=== PATIENT | male | born 1960 | race Caucasian/White ===

== ENCOUNTER 2017-01-16 00:43 | Emergency (ER) | payer OTHER ==
[~2017-01-16] VITALS: Ht 182.9 cm; Wt 87.3 kg
[~2017-01-16 00:43] MED LIST: ATOR10TA9 PO; CLON-365 PO; METF10002 PO; OMEP-110 PO; TAMS0.4C2 PO
[2017-01-16 00:46] VITALS: BP 146/82
[2017-01-16] MEDS ORDERED: KETOROLAC 30 MG/1 ML IM ONE (01:00)
[2017-01-16] MEDS ORDERED: DIAZEPAM 5 MG TABLET PO ONE (01:00)
[2017-01-16] MEDS ORDERED: KETOROLAC 30 MG/1 ML ONE (01:02)
[2017-01-16] MEDS ORDERED: DIAZEPAM 5 MG TABLET ONE (01:02)
[2017-01-16] MEDS ORDERED: HYDROcodone/APAP 5/325 TABLET ONE (01:58)
[2017-01-16] MEDS ORDERED: HYDROcodone/APAP 5/325 TABLET PO ONE (02:00)
== END 2017-01-16 02:28 | disposition home or self-care (01) ==
LOC: ED 02:01
DX: S16.1XXA Strain of muscle, fascia and tendon at neck level, initial encounter (principal); G89.11 Acute pain due to trauma; E11.9 Type 2 diabetes mellitus without complications; X50.1XXA Overexertion from prolonged static or awkward postures, initial encounter; Y93.67 Activity, basketball; Y92.320 Baseball field as the place of occurrence of the external cause; Y99.8 Other external cause status
CPT/HCPCS: 96372; 99283; J1885

== ENCOUNTER 2020-07-18 09:26 | Emergency (ER) | payer SELFPAY ==
[~2020-07-18] VITALS: Ht 182.9 cm; Wt 92.0 kg
[~2020-07-18 09:26] MED LIST changes: -CLON-365 PO; +CLON1TAB11 PO
[2020-07-18 09:33] VITALS: BP 116/79
== END 2020-07-18 10:35 | disposition home or self-care (01) ==
LOC: ED 09:55
DX: F41.1 Generalized anxiety disorder (principal); Z76.0 Encounter for issue of repeat prescription; I10 Essential (primary) hypertension; E11.65 Type 2 diabetes mellitus with hyperglycemia; J45.909 Unspecified asthma, uncomplicated
CPT/HCPCS: 99281